=== PATIENT | female | born 1975 | race Caucasian/White ===

== ENCOUNTER → 2018-04-14 | Outpatient (REF) | payer OTHER ==
[2018-04-14 19:04] LABS: APPEARANCE, URINE CLEAR (CLEAR); BACTERIA, URINE AUTO 1+ (NEGATIVE); BILIRUBIN, URINE AUTO NEGATIVE (NEGATIVE); BLOOD, URINE BLOOD 2+ (NEGATIVE); COLOR, URINE YELLOW (YELLOW); GLUCOSE, URINE (UA) AUTO NEGATIVE (NEGATIVE); KETONE, URINE AUTO NEGATIVE (NEGATIVE); LEUKOCYTE ESTERASE, URINE AUTO 2+ (NEGATIVE); MUCUS, URINE SMALL (NEGATIVE); NITRITE, URINE AUTO NEGATIVE (NEGATIVE); PROTEIN, URINE AUTO 1+ mg/dL (NEGATIVE); RBC, URINE AUTO 50 /HPF (0-3); SPECIFIC GRAVITY URINE AUTO 1.009 (1.002-1.035); SQUAMOUS EPITHELIAL CELL UR AU 0 /HPF (0-6); UROBILINOGEN, URINE AUTO 0.2 mg/dL (0.0-2.0); WBC, URINE AUTO 26 /HPF (0-3)
== END ==
LOC: M LAB REF 17:51
DX: R35.0 Frequency of micturition (principal)

== ENCOUNTER → 2018-05-02 | Outpatient (REF) | payer OTHER ==
[2018-05-02 13:41] LABS: APPEARANCE, URINE CLEAR (CLEAR); BACTERIA, URINE AUTO NEGATIVE (NEGATIVE); BILIRUBIN, URINE AUTO NEGATIVE (NEGATIVE); BLOOD, URINE BLOOD NEGATIVE (NEGATIVE); COLOR, URINE STRAW (YELLOW); GLUCOSE, URINE (UA) AUTO NEGATIVE (NEGATIVE); KETONE, URINE AUTO NEGATIVE (NEGATIVE); LEUKOCYTE ESTERASE, URINE AUTO NEGATIVE (NEGATIVE); MUCUS, URINE SMALL (NEGATIVE); NITRITE, URINE AUTO NEGATIVE (NEGATIVE); PROTEIN, URINE AUTO NEGATIVE (NEGATIVE); RBC, URINE AUTO 2 /HPF (0-3); SPECIFIC GRAVITY URINE AUTO 1.006 (1.002-1.035); SQUAMOUS EPITHELIAL CELL UR AU 0 /HPF (0-6); UROBILINOGEN, URINE AUTO 0.2 mg/dL (0.0-2.0); WBC, URINE AUTO 0 /HPF (0-3)
== END ==
LOC: M LAB REF 12:42
DX: N39.0 Urinary tract infection, site not specified (principal)
CPT/HCPCS: 81001

== ENCOUNTER → 2020-03-02 | Outpatient (CLI) | payer OTHER ==
[~2020-03-02] MED LIST: SPRI28TA PO
== END ==
LOC: M LABSMTC 08:40
PROVIDERS: ATTEND Anesthesiology
DX: Z01.812 Encounter for preprocedural laboratory examination (principal); Z11.59 Encounter for screening for other viral diseases

== ENCOUNTER 2020-03-07 06:18 | Day surgery (SDC) | payer OTHER ==
[~2020-03-07] VITALS: Ht 165.1 cm; Wt 54.9 kg
[2020-03-07] MEDS ORDERED: SPRI28TA PO (07:04)
[2020-03-07] MEDS ORDERED: MIDAZOLAM INJ 2MG/2ML VIAL (J2250 PER 1MG) As Ordered ONE (07:15)
[2020-03-07] MEDS ORDERED: LR 1,000 ML IV ONE (07:15)
[2020-03-07] MEDS ORDERED: METOCLOPRAMIDE INJ 10MG/2ML VIAL (J2765 PER 1) As Ordered ONE (07:15)
[2020-03-07] MEDS ORDERED: ONDANSETRON 4MG/2ML VIAL As Ordered ONE (07:15)
[2020-03-07] MEDS ORDERED: propofoL 200 MG/20 ML VIAL As Ordered ONE (07:15)
[2020-03-07] MEDS ORDERED: ROCURONIUM BROMIDE 50 MG/5 ML VIAL As Ordered ONE (07:15)
[2020-03-07] MEDS ORDERED: LIDOCAINE 2% 100MG/5ML SDV (FOR ANES.) As Ordered ONE (07:15)
[2020-03-07] MEDS ORDERED: fentaNYL 100 MCG/2 ML INJECTION (J3010) As Ordered ONE (07:15)
[2020-03-07] MEDS ORDERED: dexameTHASONE 4 MG/ML 1ML VIAL (J1100 PER 1MG) As Ordered ONE (07:15)
[2020-03-07] MEDS ORDERED: KETOROLAC 60MG 2ML VIAL As Ordered ONE (07:15)
[2020-03-07] MEDS ORDERED: SUGAMMADEX SODIUM 500 MG/5 ML VIAL (BRIDION) As Ordered ONE (08:57)
[2020-03-07] MEDS ORDERED: PERCOCET 5MG/325MG TAB PO PRN (09:15)
[2020-03-07] MEDS ORDERED: LR 1,000 ML IV SCH ×2 (09:15)
[2020-03-07] MEDS ORDERED: METOCLOPRAMIDE INJ 10MG/2ML VIAL (J2765 PER 1) IV PRN (09:15)
[2020-03-07] MEDS ORDERED: IBUPROFEN 600MG TAB PO PRN (09:15)
[2020-03-07] MEDS ORDERED: fentaNYL 100 MCG/2 ML INJECTION (J3010) IV PRN (09:15)
[2020-03-07] MEDS ORDERED: NORCO, ANEXSIA 5/325MG TABLET (HYDROcodone/ACETAMINOPHEN) PO PRN (09:15)
[2020-03-07] MEDS ORDERED: ONDANSETRON 4MG/2ML VIAL IV PRN (09:15)
[2020-03-07 11:25] VITALS: BP 151/89
--- NOTE | 2020-03-26 10:34 | RO ---
DATE OF OPERATION: 03/07/2020 PREOPERATIVE DIAGNOSIS/NDICATION FOR SURGERY: Pelvic lesion by sono. POSTOPERATIVE DIAGNOSIS: Left ovarian cyst with torsion and involvement of the distal left tube, left fimbria. PROCEDURE: Laparoscopy with left ovarian cystectomy and fimbriectomy. The right tube is, of course, intact. SURGEON: María Edgar MD SUPERVISING BROKER: None ANESTHESIA: General endotracheal anesthesia BRIEF DESCRIPTION OF PROCEDURE AND FINDINGS: Michelle as brought to the operating room where sufficient general endotracheal anesthesia was induced. She was prepped, draped and positioned in the usual sterile fashion. The uterus was sounded to 9 and uterine manipulator placed and the bladder emptied and attention then turned to the abdomen. A transverse semilunar incision was made below the umbilicus where sharp and blunt dissection were continued through subcutaneous tissue to the level of the rectus fascia which was transversely incised using a scalpel, secured with 0 Vicryl retention sutures and then the peritoneum entered directly under open laparoscopic technique and then the Lyle placed and secured in place with 0 Vicryl retention sutures. CO2 insufflation was then begun. After adequate CO2 insufflation, peritoneal cavity was visualized. There were normal surrounding peritoneal surfaces throughout. There was no excrescence, ascites nor exudate. There were some minor anterior uterine adhesions to the bladder and there were large fibroids as expected. The patient was aware of these and did not want resection. With Trendelenburg and manipulation of the uterus using the uterine manipulator, we were able to see that she had a completely normal right ovary and tube. Then on the left side as documented in the pictures, the proximal portion of the ovary had a sort of thinned out area that was torsed but without obstruction of the vascular supply based on the color of the tissues and extended out into a fairly large left ovarian cystic lesion that was intimately involved in the fimbria there so I was not sure if this was a fimbrial lesion or if it was an ovarian lesion. In this patient who at 45 is at risk for other concerning lesions and knowing that the fimbria can cause certain things although this looks ovarian to me and looks benign, I elected to take that distal portion of the tube as well lest it be something more concerning so we went ahead and placed a 5 mm port on the right side, used a grasper to hold lesions, placed it up anterior to the uterus, carefully used the Enseal articulating dissector to cauterize and transect the pedicle, both of this torsed lesion and the distal portion of the tube. We then switched out for a 5 mm camera and the 5 mm port so that we could do an EndoCatch bag through the 10 mm port at the umbilicus and then as documented in the pictures, scooped up the lesion intact and brought that bag out through the umbilicus and removed the trocar as well so that we could bring the bag right up to the skin and then drained the lesion enough to just get that delivered with the bag intact and of course that portion of tube and ovary and the cystic lesion and the fluid inside which was actually looked hemosiderin colored. That will all go for pathologic evaluation. We then just plugged that hole with a finger and went ahead and reevaluated the pelvis, documented there was no bleeding at the site of dissection and that no other significant lesions. As it happens, the patients appendix was readily visualized and also photographed. She had an otherwise normal pelvis. So the procedure was then ended with the CO2 allowed to skip the abdomen. The fascial wound at the umbilicus was close with a 0 Vicryl retention suture and the skin at both sites closed with 3-0 Vicryl in a subcuticular stitch and of course, the uterine manipulator removed. The procedure ended after dry sterile dressings were of course applied. ESTIMATED BLOOD LOSS: For the procedure, approximately 3 mL. FLUID REPLACEMENT: Crystalloid. COMPLICATIONS: None. CONDITION AND DISPOSITION: Michelle tolerated the procedure well and was recovering in the recovery room in good condition. ABIGAIL
== END 2020-03-07 11:45 | disposition home or self-care (01) ==
LOC: M SDC 06:18
PROVIDERS: ATTEND Obstetrics & Gynecology
DX: N83.512 Torsion of left ovary and ovarian pedicle (principal); N83.202 Unspecified ovarian cyst, left side; Z88.0 Allergy status to penicillin; Z79.899 Other long term (current) drug therapy
CPT/HCPCS: 58661; 58662; 81025; 88307; J1100; J1885; J2250; J2405; J2765; J3010

== ENCOUNTER → 2024-02-23 | Outpatient (REF) | payer OTHER ==
[2024-02-23 14:06] LABS: BASO # 0.1 10^3/uL (0.0-0.2); BASO % 1.1 % (0.0-1.0); EOS # 0.2 10^3/uL (0.0-0.5); EOS % 2.5 % (0.0-3.0); HEMATOCRIT 39.2 % (36.0-47.0); HEMOGLOBIN 12.2 g/dl (12.0-15.5); LYMPH # 2.2 10^3/uL (1.5-5.0); LYMPH % 35.1 % (24.0-44.0); MEAN CORPUSCULAR HEMOGLOBIN 24.7 pg (27.0-33.0); MEAN CORPUSCULAR HGB CONC 31.1 g/dl (32.0-36.5); MEAN CORPUSCULAR VOLUME 79.5 fl (80.0-96.0); MONO # 0.7 10^3/uL (0.0-0.8); MONO % 10.5 % (2.0-8.0); NEUTROPHILS # 3.2 10^3/uL (1.5-8.5); NEUTROPHILS % 50.6 % (36.0-66.0); PLATELET COUNT, AUTOMATED 420 10^3/uL (150-450); RED BLOOD COUNT 4.93 10^6/uL (4.00-5.40); WHITE BLOOD COUNT 6.3 10^3/uL (4.0-10.0)
[2024-02-23 14:12] LABS: ALBUMIN 4.1 G/DL (3.2-5.2); ALKALINE PHOSPHATASE 70 U/L (46-116); ALT/SGPT 18 U/L (7.0-40); AST/SGOT 11 U/L (<34); BILIRUBIN,TOTAL 0.5 MG/DL (0.3-1.2); BLOOD UREA NITROGEN 12 MG/DL (9-23); CALCIUM LEVEL 9.2 MG/DL (8.5-10.1); CARBON DIOXIDE LEVEL 32 MMOL/L (20-31); CHLORIDE LEVEL 106 MMOL/L (98-107); CHOLESTEROL LEVEL 235 MG/DL (<200); CHOLESTEROL RISK RATIO 3.05 (<5); CREATININE FOR GFR 0.71 MG/DL (0.55-1.30); GLOMERULAR FILTRATION RATE > 60.0 (>51); GLUCOSE, FASTING 94 MG/DL (60-100); POTASSIUM SERUM 4.6 MMOL/L (3.5-5.1); SODIUM LEVEL 139 MMOL/L (136-145); TOTAL PROTEIN 7.1 G/DL (5.7-8.2); TRIGLYCERIDES LEVEL 70 MG/DL (<150)
== END ==
LOC: M LABDRWAD 13:17
PROVIDERS: ATTEND Registered Nurse
DX: I10 Essential (primary) hypertension (principal)

== ENCOUNTER → 2025-03-06 | Outpatient (REF) | payer OTHER ==
[2025-03-06 14:22] LABS: BASO # 0.1 10^3/uL (0.0-0.2); BASO % 1.5 % (0.0-1.0); EOS # 0.2 10^3/uL (0.0-0.5); EOS % 3.9 % (0.0-3.0); LYMPH # 2.1 10^3/uL (1.5-5.0); LYMPH % 34.2 % (24.0-44.0); MONO # 0.6 10^3/uL (0.0-0.8); MONO % 9.0 % (2.0-8.0); NEUTROPHILS # 3.2 10^3/uL (1.5-8.5); NEUTROPHILS % 51.2 % (36.0-66.0); PLATELET COUNT, AUTOMATED 327 10^3/uL (150-450)
[2025-03-06 14:43] LABS: ALT/SGPT 16.0 U/L (7.0-40); AST/SGOT 18.0 U/L (<34); CALCIUM LEVEL 9.9 MG/DL (8.5-10.1); CARBON DIOXIDE LEVEL 32.0 MMOL/L (20-31); CHLORIDE LEVEL 101.0 MMOL/L (98-107); CHOLESTEROL LEVEL 245.0 MG/DL (<200); CHOLESTEROL RISK RATIO 3.15 (<5); CREATININE FOR GFR 0.84 MG/DL (0.55-1.30); GLOMERULAR FILTRATION RATE 83.6 (>51); IRON (FE) 142.0 UG/DL (50-170); LDL CHOLESTEROL 147.6 MG/DL (<100); NON-HDL-C 167.4 MG/DL; PERCENT SATURATION 43.6 % (13.2-45.0); POTASSIUM SERUM 4.8 MMOL/L (3.5-5.1); SODIUM LEVEL 142.0 MMOL/L (136-145); TRIGLYCERIDES LEVEL 99.0 MG/DL (<150)
== END ==
LOC: M LABDRWAD 13:03
PROVIDERS: ATTEND Registered Nurse
DX: Z00.00 Encounter for general adult medical examination without abnormal findings (principal)